=== PATIENT | female | born 1990 | race Asian ===

== ENCOUNTER 2016-11-02 12:45 | Inpatient (IN) | payer OTHER ==
[2016-11-02 17:22] VITALS: BMI 25.6
--- NOTE | 2016-11-02 17:55 | HP ---
COWS - Scale Resting Pulse: 1= [place] 81-100 Sweatin= Chills/Flushing Restless Observation: 3= Extraneous Movement Pupil Size: 0= Normal to Room Light Bone or Joint Aches: 2= Severe Diffuse Aches Runny Nose/ Eye Tearin= Nasal Congestion GI Upset > 30mins: 2= Nausea/Diarrhea Tremor Observation: 2= Slight Tremor Visible Yawning Observation: 0= None Anxiety or Irritability: 2=Irritable/Anxious Goose Flesh Skin: 0=Smooth Skin COWS Score: 14 CIWA Score - CIWA Score Nausea/Vomitin-Mild Nausea/No Vomiting Muscle Tremors: 4-Moderate,w/Arms Extend Anxiety: 4-Mod. Anxious/Guarded Agitation: 1-Slight > Activity Paroxysmal Sweats: 1-Minimal Palms Moist Orientation: 0-Oriented Tacttile Disturbances: 0-None Auditory Disturbances: 0-None Visual Disturbances: 0-None Headache: 3-Moderate CIWA-Ar Total Score: 14 Admission ROS [facility] - HPI Chief Complaint: withdrawal sx Allergies/Adverse Reactions: Allergies Allergy/AdvReac Type Severity Reaction Status Date / Time No Known Allergies Allergy Verified 11/02/16 16:46 History of Present Illness: 26 years old female with long history of opiate klonopine dependence has positive ppd and anxiety is admitted to detox Exam Limitations: No Limitations - Ebola screening Have you traveled outside of the country in the last 21 days: No Have you had contact with anyone from an Ebola affected area: No Have you been sick,other than usual withdrawal symptoms: No Do you have a fever: No - Review of Systems Constitutional: Chills, Changes in sleep, Weight Stable EENT: reports: Other (eye glasses) Respiratory: reports: No Symptoms reported Cardiac: reports: No Symptoms Reported GI: reports: Diarrhea, Nausea, Poor Fluid Intake, Abdominal cramping : reports: No Symptoms Reported Musculoskeletal: reports: Back Pain, Joint Pain, Muscle Pain, Neck Pain Integumentary: reports: No Symptoms Reported Neuro: reports: Tremors Endocrine: reports: No Symptoms Reported Hematology: reports: No Symptoms Reported Psychiatric: reports: Judgement Intact, Orientated x3, Anxious Other Systems: Reviewed and Negative Patient History - Patient Medical History Hx Anemia: No Hx Asthma: No Hx Chronic Obstructive Pulmonary Disease (COPD): No Hx Cancer: No Hx Cardiac Disorders: No Hx Congestive Heart Failure: No Hx Hypertension: No Hx Hypercholesterolemia: No Hx Pacemaker: No Hx Seizures: No Hx Dementia: No Hx Diabetes: No Hx Gastrointestinal Disorders: No Hx Liver Disease: No Hx Genitourinary Disorders: No Hx Sexually Transmitted Disorders: No Hx Renal Disease (ESRD): No Hx Thyroid Disease: No Hx Human Immunodeficiency Virus (HIV): No Hx Hepatitis C: No Hx Depression: Yes Hx Suicide Attempt: No Hx Bipolar Disorder: No Hx Schizophrenia: No - Patient Surgical History Past Surgical History: No Hx Neurologic Surgery: No Hx Cataract Extraction: No Hx Cardiac Surgery: No Hx Lung Surgery: No Hx Breast Surgery: No Hx Breast Biopsy: No Hx Abdominal Surgery: No Hx Appendectomy: No Hx Cholecystectomy: No Hx Genitourinary Surgery: No Hx Section: No Hx Orthopedic Surgery: No Hx Hysterectomy: No - PPD History Previous Implant?: No Documented Results: Positive w/o proof Implanted On Prior [facility] Admission?: No PPD to be Administered?: No - Reproductive History Patient is a Female of Child Bearing Age (11 -55 yrs old): Yes Last Menstrual Period: 10/28/16 Patient : No - Smoking Cessation Smoking history: Never smoked Have you smoked in the past 12 months: No Hx Chewing Tobacco Use: No Initiated information on smoking cessation: No - Substance & Tx. History Hx Alcohol Use: No Hx Substance Use: Yes Substance Use Type: Opiates, Tranquilizers Hx Substance Use Treatment: Yes - Substances Abused Oxycodone Route: Oral Frequency: Daily Amount used: 50 mg Age of first use: 26 Date of Last Use: 11/01/16 percocet Route: Oral Frequency: 3-6 times per week Age of first use: 26 Date of Last Use: 11/01/16 Benzodiazepine (Klonopin) Route: Oral Frequency: Daily Amount used: 6 mg Age of first use: 24 Date of Last Use: 11/01/16 Family Disease History - Family Disease History Family Disease History: Diabetes: Father Admission Physical Exam [facility] - Vital Signs Vital Signs: Vital Signs - 24 hr 11/02/16 17:20 Temperature 98.2 F Pulse Rate 86 Respiratory 20 Rate Blood Pressure 147/88 - Physical General Appearance: Yes: Nourished, Appropriately Dressed, Mild Distress, Tremorous, Irritable, Sweating, Anxious HEENTM: Yes: Hearing grossly Normal, Normal ENT Inspection, Normocephalic, Normal Voice Respiratory: Yes: Chest Non-Tender, Lungs Clear, Normal Breath Sounds, No Respiratory Distress, No Accessory Muscle Use Neck: Yes: Supple, Trachea in good position Breast: Yes: Breasts Symetrical Cardiology: Yes: Regular Rhythm, Regular Rate, S1, S2 Abdominal: Yes: Non Tender, Soft Genitourinary: Yes: Within Normal Limits Back: Yes: Within Normal Limits Musculoskeletal: Yes: full range of Motion, Gait Steady, Back pain, Muscle Pain Extremities: Yes: Normal Inspection, Normal Range of Motion, Non-Tender, Tremors Neurological: Yes: Fully Oriented, Alert, Motor Strength 5/5, Normal Response, Depressed Affect Integumentary: Yes: Warm Lymphatic: Yes: Within Normal Limits - Diagnostic (1) Opioid dependence with withdrawal Current Visit: Yes Status: Acute (2) Sedative, hypnotic or anxiolytic dependence with withdrawal, uncomplicated Current Visit: Yes Status: Acute (3) PPD positive, treated Current Visit: Yes Status: Resolved Comment: chest x ray pending (4) Depression (emotion) Current Visit: Yes Status: Suspected Qualifiers: Depression Type: dysthymia Qualified Code(s): F34.1 - Dysthymic disorder Cleared for Admission [facility] - Detox or Rehab [facility] Level of Care: Medically Managed Detox Regimen/Protocol: Methadone/Valium [facility] Breath Alcohol Content Breath Alcohol Content: 0 Urine Pregancy Test - Result Urine Test Results: Negative- NO Line Present Urine Drug Screen - Results Drug Screen Negative: No Urine Drug Screen Results: OPI-Opiates, BZO-Benzodiazepines, TCA-Tricyclic Antidepress, OXY-Oxycodone
[2016-11-02] MEDS ORDERED: MENTHOL/PHENOL 1 EACH UD MM PRN (18:06)
[2016-11-02] MEDS ORDERED: MAGNESIUM HYDROX 2400MG/30ML ORAL SUSPENSION 30 ML CUP PO PRN (18:06)
[2016-11-02] MEDS ORDERED: P-EPHED 60MG/TRIPROLIDI 2.5MG TABLET PO PRN (18:06)
[2016-11-02] MEDS ORDERED: MAGNESIUM CITRATE 300 ML BOTTLE PO PRN (18:06)
[2016-11-02] MEDS ORDERED: guaiFENesin/D-METHORPHAN HB 10 ML UNIT-DOSE CUPS PO PRN (18:06)
[2016-11-02] MEDS ORDERED: LOPERAMIDE HCL 2 MG CAPSULE PO PRN (18:06)
[2016-11-02] MEDS ORDERED: MAG HYDROX/AL HYDROX/SIMETH 30 ML UNIT-DOSE CUP PO PRN (18:06)
[2016-11-02] MEDS ORDERED: IBUPROFEN 400 MG TABLET (FP) PO PRN (18:06)
[2016-11-02] MEDS ORDERED: diazePAM 5 MG TABLET PO ONE (18:30)
[2016-11-02] MEDS ORDERED: METHADONE HCL 10 MG TABLET (FOR DETOX USE ONLY) PO ONE ×2 (18:30→23:00)
[2016-11-02] MEDS: diphenhydrAMINE HCL 50 MG CAPSULE PO PRN (22:13)
[2016-11-02] MEDS: THIAMINE HCL 100 MG TABLET (FP) PO SCH (22:13)
[2016-11-02] MEDS: diazePAM 5 MG TABLET PO SCH (22:13)
[2016-11-02 23:26] LABS: URINE APPEARANCE CLEAR; URINE BILIRUBIN NEGATIVE (NEGATIVE); URINE BLOOD NEGATIVE (NEGATIVE); URINE COLOR AMBER; URINE GLUCOSE (UA) NEGATIVE (NEGATIVE); URINE KETONE 1+ (NEGATIVE); URINE NITRITE NEGATIVE (NEGATIVE); URINE UROBILINOGEN 4.0 E.U/dl E.U./dl (0.2-1.0)
[2016-11-02 23:27] LABS: URINE LEUK ESTERASE TRACE (NEGATIVE); URINE PROTEIN 1+ (NEGATIVE)
[2016-11-02 23:30] LABS: URINE BACTERIA RARE /hpf (NONE SEEN); URINE MUCUS MANY; URINE RBC 1 /hpf (0-3); URINE WBC 13 /hpf (3-5)
[2016-11-03] MEDS: diazePAM 5 MG TABLET PO SCH ×3 (05:22→22:25)
[2016-11-03] MEDS ORDERED: METHADONE HCL 10 MG TABLET (FOR DETOX USE ONLY) PO SCH (10:00)
--- NOTE | 2016-11-03 10:13 | PN ---
[facility] CIWA - CIWA Score Nausea/Vomitin-No Nausea/No Vomiting Muscle Tremors: 4-Moderate,w/Arms Extend Anxiety: 3 Agitation: 4-Moderately Restless Paroxysmal Sweats: 2 Orientation: 0-Oriented Tacttile Disturbances: 0-None Auditory Disturbances: 0-None Visual Disturbances: 0-None Headache: 0-None Present CIWA-Ar Total Score: 13 S COWS - Scale Resting Pulse: 0= [place] 80 or Below Sweatin= Chills/Flushing Restless Observation: 1= Difficult to Sit Still Pupil Size: 0= Normal to Room Light Bone or Joint Aches: 2= Severe Diffuse Aches Runny Nose/ Eye Tearin= Nasal Congestion GI Upset > 30mins: 0= None Tremor Observation of Outstretched Hands: 2= Slight Tremor Visible Yawning Observation: 1= 1-2x During Session Anxiety or Irritability: 2=Irritable/Anxious Goose Flesh Skin: 3=Piloerection COWS Score: 13 [facility] Progress Note (SOAP) Subjective: sweats shakes chills agitation irritable Objective: 11/03/16 10:12 Vital Signs Temperature 97.7 F 11/03/16 06:52 Pulse Rate 72 11/03/16 06:52 Respiratory Rate 18 11/03/16 06:52 Blood Pressure 96/67 11/03/16 06:52 O2 Sat by Pulse Oximetry (%) Laboratory Tests 11/02/16 23:10 Urine Color Lenora Urine Appearance Clear Urine pH 6.0 Ur Specific [place] 1.027 Urine Protein 1+ H Urine Glucose (UA) Negative Urine Ketones 1+ H Urine Blood Negative Urine Nitrite Negative Urine Bilirubin Negative Urine Urobilinogen 4.0 e.u/dl H Ur Leukocyte Esterase Trace H Urine RBC 1 Urine WBC 13 Ur Epithelial Cells Moderate Urine Bacteria Rare Urine Mucus Many repeat u/a labs pending awake/alert ambulating no acute distress Assessment: 11/03/16 10:13 withdrawal sx Plan: continue detox increase fluids labs pending
[2016-11-03] MEDS: PRENATAL VITAMINS W/ FOLIC ACID TABLET (FP) PO SCH (10:23)
[2016-11-03 10:28] LABS: MCHC 32.6 g/dl (32.0-36.0); MEAN CELL VOLUME 85.8 fl (80-96); MEAN PLT VOLUME 8.8 fl (7.5-11.1); PLATELET COUNT 349 K/MM3 (134-434); RDW 15.4 % (11.6-15.6); WHITE BLOOD COUNT 8.3 K/mm3 (4.0-10.0)
[2016-11-03 11:04] LABS: ALBUMIN 4.1 g/dl (3.4-5.0); ALK PHOS 101 U/L (45-117); ANION GAP 8 (8-16); BILIRUBIN,TOTAL 0.6 mg/dL (0.2-1.0); CALCIUM 9.4 mg/dL (8.5-10.1); CO2 28 mmol/L (21-32); CREATININE 0.7 mg/dL (0.55-1.02); GLUCOSE,RANDOM 103 mg/dL (74-106); SGOT/AST 17 U/L (15-37); SGPT/ALT 29 U/L (12-78); TOT PROT 7.9 g/dl (6.4-8.2)
[2016-11-03] MEDS: ACETAMINOPHEN 325 MG TABLET (FP) PO PRN ×2 (11:25→17:03)
[2016-11-03] MEDS: diazePAM 5 MG TABLET PO PRN ×2 (11:27→17:03)
--- NOTE | 2016-11-03 14:41 | CONSULT ---
[facility] Psychiatric Consult - Data Date of interview: 11/03/16 Admission source: [facility] Identifying data: First admission to [facility] for this 26 y/o female seeking detox treatment for opiate and benzodiazepine dependence.Patient is single,a mother of two (children are in the custody of maternal grand mother), domiciled,unemployed and dependent on relatives for financial support. Substance Abuse History: - Smoking Cessation. Smoking history: Never smoked. Have you smoked in the past 12 months: No. Hx Chewing Tobacco Use: No. Initiated information on smoking cessation: No. - Substance & Tx. History. Hx Alcohol Use: No. Hx Substance Use: Yes. Substance Use Type: Opiates, Tranquilizers. Hx Substance Use Treatment: Yes. - Substances Abused. Oxycodone. Route: Oral. Frequency: Daily. Amount used: 50 mg. Age of first use: 26. Date of Last Use: 11/01/16. percocet. Route: Oral. Frequency: 3- 6 times per week. Age of first use: 26. Date of Last Use: 11/01/16. Benzodiazepine (Klonopin). Route: Oral. Frequency: Daily. Amount used: 6 mg. Age of first use: 24. Date of Last Use: 11/01/16. Confirmed by patient. Medical History: Patient endorses good general health. Psychiatric History: No reported history of psychiatric hospitalizations.Patient is currently under the care of a private psychiatrist, Dr José,in [facility].Diagnosed with MDD/Anxiety Disorder.Prescribed : prozac 10 mg/day.Ms Weathers denies history of suicide attempts. Physical/Sexual Abuse/Trauma History: No reported history of sexual abuse. Additional Comment: Urine Drug Screen Results: OPI-Opiates, BZO-Benzodiazepines , TCA-Tricyclic Antidepressant, OXY-Oxycodone.Noted. Mental Status Exam - Mental Status Exam Alert and Oriented to: Time, Place, Person Cognitive Function: Good Patient Appearance: Well Groomed (short stature) Mood: Anxious, Apprehensive, Hopeful Affect: Mood Congruent Patient Behavior: Fatigued, Cooperative (well-mannered) Speech Pattern: Clear, Appropriate Voice Loudness: Normal Thought Process: Goal Oriented Thought Disorder: Not Present Hallucinations: Denies Suicidal Ideation: Denies Homicidal Ideation: Denies Insight/Judgement: Fair Sleep: Fair Appetite: Good Muscle strength/Tone: Normal Gait/Station: Normal Psychiatric Findings - Problem List ([place] 1, 2,3) (1) Opioid dependence with withdrawal Current Visit: Yes Status: Acute (2) Sedative, hypnotic or anxiolytic dependence with withdrawal, uncomplicated Current Visit: Yes Status: Acute (3) Substance induced mood disorder Current Visit: Yes Status: Suspected (4) MDD (major depressive disorder) Current Visit: Yes Status: Chronic (5) PPD positive, treated Current Visit: Yes Status: Resolved Comment: chest x ray pending - Initial Treatment Plan Initial Treatment Plan: Psychoeducation.Detoxification in progress.Medication : prozac 10 mg po daily.Side effects/benefits discussed with patient.Made aware of risk for sexual dysfunction and occurrence of suicidal ideation.Patient denies past history of adverse events on prozac and she insisits that the drug be part of this current regime of medications.Observation.[employer] is aware of the fact that this patient has a two-month old .Ms Weathers has CLEARLY reported that she is NOT .No clinical evidence of mood dysregulation/altered mental status in this psychiatric examination.
[2016-11-03] MEDS: THIAMINE HCL 100 MG TABLET (FP) PO SCH (22:25)
[2016-11-03] MEDS: diphenhydrAMINE HCL 50 MG CAPSULE PO PRN (22:29)
[2016-11-04] MEDS: diazePAM 5 MG TABLET PO PRN ×3 (07:21→18:24)
--- NOTE | 2016-11-04 08:27 | EKG ---
Test Reason : Blood Pressure : / mmHG Vent. Rate : 083 BPM Atrial Rate : 083 BPM P-R Int : 122 ms QRS Dur : 088 ms QT Int : 394 ms P-R-T Axes : 051 052 018 degrees QTc Int : 462 ms NORMAL SINUS RHYTHM NORMAL ECG NO PREVIOUS ECGS AVAILABLE Confirmed by AYO MAGANA MD ([id number]) on 11/04/2016 8:26:42 AM Referred By: Confirmed By:AYO MAGANA MD
[2016-11-04] MEDS: FLUoxetine HCL 10 MG CAPSULE (FP) PO SCH (10:27)
[2016-11-04] MEDS: METHADONE HCL 5 MG TABLET (FOR DETOX USE ONLY) PO SCH (10:27)
[2016-11-04] MEDS: ACETAMINOPHEN 325 MG TABLET (FP) PO PRN (10:27)
[2016-11-04] MEDS: diazePAM 5 MG TABLET PO SCH ×2 (10:27→22:32)
[2016-11-04] MEDS: PRENATAL VITAMINS W/ FOLIC ACID TABLET (FP) PO SCH (10:27)
--- NOTE | 2016-11-04 11:22 | PN ---
[facility] CIWA - CIWA Score Nausea/Vomitin Muscle Tremors: 3 Anxiety: 2 Agitation: 2 Paroxysmal Sweats: 3 Orientation: 0-Oriented Tacttile Disturbances: 1-Very Mild Itch/Numbness Auditory Disturbances: 0-None Visual Disturbances: 0-None Headache: 0-None Present CIWA-Ar Total Score: 13 S COWS - Scale Resting Pulse: 0= [place] 80 or Below Sweatin=Flushed/Facial Moisture Restless Observation: 1= Difficult to Sit Still Pupil Size: 1= Pupils >than Normal Bone or Joint Aches: 1= Mild Discomfort Runny Nose/ Eye Tearin= Nasal Congestion GI Upset > 30mins: 1= Stomach Cramp Tremor Observation of Outstretched Hands: 2= Slight Tremor Visible Yawning Observation: 0= None Anxiety or Irritability: 1=Feels Anxious/Irritable Goose Flesh Skin: 0=Smooth Skin COWS Score: 10 S Progress Note (SOAP) Subjective: interrupted sleep, sweats, restless legs, Objective: 11/04/16 11:20 Vital Signs Temperature 97.9 F 11/04/16 10:31 Pulse Rate 72 11/04/16 10:31 Respiratory Rate 18 11/04/16 10:31 Blood Pressure 112/65 11/04/16 10:31 O2 Sat by Pulse Oximetry (%) Laboratory Tests 11/02/16 11/03/16 11/03/16 23:10 06:00 06:00 WBC 8.3 RBC 4.94 Hgb 13.8 Hct 42.4 MCV 85.8 MCHC 32.6 RDW 15.4 Plt Count 349 MPV 8.8 Sodium 141 Potassium 4.1 Chloride 105 Carbon Dioxide 28 Anion Gap 8 BUN 9 Creatinine 0.7 Creat Clearance w eGFR > 60 Random Glucose 103 Calcium 9.4 Total Bilirubin 0.6 AST 17 ALT 29 Alkaline Phosphatase 101 Total Protein 7.9 Albumin 4.1 Urine Color Lenora Urine Appearance Clear Urine pH 6.0 Ur Specific [place] 1.027 Urine Protein 1+ H Urine Glucose (UA) Negative Urine Ketones 1+ H Urine Blood Negative Urine Nitrite Negative Urine Bilirubin Negative Urine Urobilinogen 4.0 e.u/dl H Ur Leukocyte Esterase Trace H Urine RBC 1 Urine WBC 13 Ur Epithelial Cells Moderate Urine Bacteria Rare Urine Mucus Many RPR Titer 11/03/16 06:00 WBC RBC Hgb Hct MCV MCHC RDW Plt Count MPV Sodium Potassium Chloride Carbon Dioxide Anion Gap BUN Creatinine Creat Clearance w eGFR Random Glucose Calcium Total Bilirubin AST ALT Alkaline Phosphatase Total Protein Albumin Urine Color Urine Appearance Urine pH Ur Specific [place] Urine Protein Urine Glucose (UA) Urine Ketones Urine Blood Urine Nitrite Urine Bilirubin Urine Urobilinogen Ur Leukocyte Esterase Urine RBC Urine WBC Ur Epithelial Cells Urine Bacteria Urine Mucus RPR Titer Nonreactive pt aox3 lying in bed in nad Assessment: 11/04/16 11:21 withdrawal sx's restless legs Plan: cont. detox increase fluids flexeril 10mg tid/prn
[2016-11-04 15:33] LABS: URINE APPEARANCE SLCLOUDY; URINE BILIRUBIN NEGATIVE (NEGATIVE); URINE BLOOD NEGATIVE (NEGATIVE); URINE COLOR YELLOW; URINE GLUCOSE (UA) NEGATIVE (NEGATIVE); URINE KETONE NEGATIVE (NEGATIVE); URINE NITRITE NEGATIVE (NEGATIVE); URINE PROTEIN NEGATIVE (NEGATIVE); URINE UROBILINOGEN NEGATIVE E.U./dl (0.2-1.0)
[2016-11-04 15:39] LABS: URINE LEUK ESTERASE 3+ (NEGATIVE)
[2016-11-04 16:08] LABS: CALCIUM OXALATE CRYSTALS FEW /hpf (NONE SEEN); URINE BACTERIA RARE /hpf (NONE SEEN); URINE MUCUS RARE; URINE RBC 1 /hpf (0-3); URINE WBC 37 /hpf (3-5)
[2016-11-04] MEDS: CYCLOBENZAPRINE HCL 10 MG TABLET (FP) PO PRN (18:24)
[2016-11-04] MEDS: THIAMINE HCL 100 MG TABLET (FP) PO SCH (22:32)
[2016-11-04] MEDS: diphenhydrAMINE HCL 50 MG CAPSULE PO PRN (22:33)
[2016-11-05] MEDS: diphenhydrAMINE HCL 50 MG CAPSULE PO PRN ×2 (00:37→22:15)
[2016-11-05] MEDS: diazePAM 5 MG TABLET PO PRN ×2 (00:37→14:52)
[2016-11-05] MEDS: METHADONE HCL 5 MG TABLET (FOR DETOX USE ONLY) PO SCH (10:25)
[2016-11-05] MEDS: diazePAM 5 MG TABLET PO SCH ×2 (10:25→22:15)
[2016-11-05] MEDS: PRENATAL VITAMINS W/ FOLIC ACID TABLET (FP) PO SCH (10:25)
[2016-11-05] MEDS: FLUoxetine HCL 10 MG CAPSULE (FP) PO SCH (10:26)
--- NOTE | 2016-11-05 11:36 | PN ---
[facility] Progress Note (SOAP) Subjective: irritable agitation sweats interrupted sleep Objective: 11/05/16 11:33 Vital Signs Temperature 97.7 F 11/05/16 09:37 Pulse Rate 81 11/05/16 09:37 Respiratory Rate 18 11/05/16 09:37 Blood Pressure 114/68 11/05/16 09:37 O2 Sat by Pulse Oximetry (%) awake/alert ambulating no acute distress Assessment: 11/05/16 11:34 withdrawal sx Plan: continue detox increase fluids
[2016-11-05] MEDS: CYCLOBENZAPRINE HCL 10 MG TABLET (FP) PO PRN (14:52)
[2016-11-05] MEDS ORDERED: hydrOXYzine PAMOATE 50 MG CAPSULE (FP) PO ONE (19:24)
[2016-11-05] MEDS: THIAMINE HCL 100 MG TABLET (FP) PO SCH (22:15)
[2016-11-06] MEDS ORDERED: diazePAM 5 MG TABLET PO SCH (10:00)
[2016-11-06] MEDS ORDERED: METHADONE HCL 10 MG TABLET (FOR DETOX USE ONLY) PO SCH (10:00)
--- NOTE | 2016-11-06 10:10 | PN ---
S Progress Note (SOAP) Subjective: alert,interrupted sleep Objective: 11/06/16 10:09 Vital Signs Temperature 97.9 F 11/06/16 06:00 Pulse Rate 88 11/06/16 06:00 Respiratory Rate 18 11/06/16 06:00 Blood Pressure 104/67 11/06/16 06:00 O2 Sat by Pulse Oximetry (%) Assessment: 11/06/16 10:09 withdrawal symptom Plan: continue detox,discharge in am
[2016-11-06] MEDS: PRENATAL VITAMINS W/ FOLIC ACID TABLET (FP) PO SCH (10:14)
[2016-11-06] MEDS: FLUoxetine HCL 10 MG CAPSULE (FP) PO SCH (10:14)
[2016-11-06] MEDS: CYCLOBENZAPRINE HCL 10 MG TABLET (FP) PO PRN ×2 (12:24→22:39)
[2016-11-06] MEDS: diphenhydrAMINE HCL 50 MG CAPSULE PO PRN (22:39)
[2016-11-06] MEDS: THIAMINE HCL 100 MG TABLET (FP) PO SCH (22:39)
[2016-11-07] MEDS ORDERED: METHADONE HCL 5 MG TABLET (FOR DETOX USE ONLY) PO SCH (06:00)
[2016-11-07 06:33] VITALS: BP 96/59; PULSE 90; TEMP 98.2
--- NOTE | 2016-11-07 09:26 | PN ---
[facility] Progress Note (SOAP) Subjective: ALERT,COMPLAINT OF LUMP LEFT BREST THIS MORNING, 2 MONTHS Objective: 11/07/16 09:20 Vital Signs Temperature 98.2 F 11/07/16 06:32 Pulse Rate 90 11/07/16 06:32 Respiratory Rate 18 11/07/16 06:32 Blood Pressure 96/59 11/07/16 06:32 O2 Sat by Pulse Oximetry (%) 11/07/16 09:21 Assessment: 11/07/16 09:21 DETOX COMPLETED,NO WITHDRAWAL SYMPTOM EXAMINATION IN THE PRESENT OF NURSE HERMILO ASHRAF BOTH BREASTS NO DIMPLE OF SKIN SYMMETRY NO DISCHARGE FROM NIPPLE MASS LEFT BREAST AT 9 O CLOCK POSITION SUBAREOLAR AREA SIZE 1 CM MOVABLE WITH PAIN ON PALPATION NO AXILLARY GLAND ENLARGEMENT IMPRESSION MASS LEFT BREAST ADVISE FOLLOW UP WITH PCP FOR EVALUATION UPON DISCHARGE Plan: DISCHARGE TODAY,FOLLOW UP WITH AFTER CARE PROGRAM ARRANGEMENT AND PMD FOR LUMP LEFT BREAST
--- NOTE | 2016-11-07 09:32 | DS ---
[facility] Detox Discharge Summary Admission Date: 11/02/16 Discharge Date: 11/07/16 - History Present History: Opioid Dependence, Sedative Dependence Additional Comments: FOLLOW UP WITH AFTER CARE PROGRAM ARRANGEMENT AND PCP FOR EVALUATION AND TREATMENT OF MASS LEFT BREAST UPON DISCHARGE Pertinent Past History: DEPRESSION - Physical Exam Results Vital Signs: Vital Signs Temperature 98.2 F 11/07/16 06:32 Pulse Rate 90 11/07/16 06:32 Respiratory Rate 18 11/07/16 06:32 Blood Pressure 96/59 11/07/16 06:32 O2 Sat by Pulse Oximetry (%) Pertinent Admission Physical Exam Findings: WITHDRAWAL SYMPTOM - Treatment Hospital Course: Detox Protocol Followed, Detoxed Safely, Responded well, Discharged Condition Good, Rehab Referral Accepted Patient has Accepted a Rehab Referral to: [facility] - Medication Discharge Medications: Ambulatory Orders Fluoxetine HCl [Prozac -] 10 mg PO DAILY 11/02/16 Fluoxetine HCl [Prozac -] 10 mg PO DAILY #30 capsule 11/03/16 - Diagnosis (1) Opioid dependence with withdrawal Current Visit: Yes Status: Acute (2) Sedative, hypnotic or anxiolytic dependence with withdrawal, uncomplicated Current Visit: Yes Status: Acute (3) MDD (major depressive disorder) Current Visit: Yes Status: Chronic (4) Mass of left breast Current Visit: Yes Status: Acute - AMA Did Patient Leave Against Medical Advice: No
[2016-11-07] MEDS: FLUoxetine HCL 10 MG CAPSULE (FP) PO SCH (09:56)
[2016-11-07] MEDS: PRENATAL VITAMINS W/ FOLIC ACID TABLET (FP) PO SCH (09:56)
== END 2016-11-07 10:30 | disposition home or self-care (01) | DRG 773 ==
LOC: YASAS 12:45 → Y6N 17:26
PROVIDERS: ADMIT Internal Medicine Addiction Medicine; ATTEND Internal Medicine Addiction Medicine
PROC: HZ2ZZZZ Detoxification Services for Substance Abuse Treatment (ICD-10-PCS; principal; 2016-11-07)
DX: F11.23 Opioid dependence with withdrawal (principal); F13.230 Sedative, hypnotic or anxiolytic dependence with withdrawal, uncomplicated; F33.9 Major depressive disorder, recurrent, unspecified; R76.11 Nonspecific reaction to tuberculin skin test without active tuberculosis; N63 Unspecified lump in breast
CPT/HCPCS: 36415; 71020-TC; 80053; 81003; 81015; 85027; 86593; 93005; 93010